=== PATIENT | male | born 1975 | race Caucasian/White ===

== ENCOUNTER 2021-02-28 22:14 | Emergency (ER) | payer OTHER ==
[~2021-02-28] VITALS: Ht 170.2 cm; Wt 108.9 kg
[2021-02-28] MEDS ORDERED: METF500 PO (22:31)
[2021-02-28] MEDS ORDERED: Prinivil10 MG PO (22:31)
== END 2021-02-28 22:40 | disposition home or self-care (01) ==
LOC: ER 22:14
DX: E11.9 Type 2 diabetes mellitus without complications (principal); Z76.0 Encounter for issue of repeat prescription; Z79.84 Long term (current) use of oral hypoglycemic drugs; Z79.899 Other long term (current) drug therapy
CPT/HCPCS: 99281

== ENCOUNTER 2021-03-04 03:30 | Emergency (ER) | payer OTHER ==
[~2021-03-04] VITALS: Ht 170.2 cm; Wt 108.9 kg
[~2021-03-04 03:30] MED LIST: METF500 PO; Prinivil10 MG PO
[2021-03-04] MEDS ORDERED: ALBU90OI INH (07:11)
[2021-03-04] MEDS ORDERED: Flovent Diskus50 MCG INH (07:11)
[2021-03-04] MEDS ORDERED: PRED20 PO (07:11)
[2021-03-04] MEDS ORDERED: NAPR500 PO (07:12)
[2021-03-04] MEDS ORDERED: LIDO700A20 TOP (07:12)
[2021-03-05] MEDS ORDERED: IBUP400 PO (07:11)
== END 2021-03-04 08:12 | disposition home or self-care (01) ==
LOC: ER 03:30
DX: S96.912A Strain of unspecified muscle and tendon at ankle and foot level, left foot, initial encounter (principal); J45.901 Unspecified asthma with (acute) exacerbation; Z79.899 Other long term (current) drug therapy; Z79.84 Long term (current) use of oral hypoglycemic drugs; E11.9 Type 2 diabetes mellitus without complications; I50.9 Heart failure, unspecified; F17.210 Nicotine dependence, cigarettes, uncomplicated; X58.XXXA Exposure to other specified factors, initial encounter
CPT/HCPCS: 71046; 93005; 93010; 93971; 94640; 99284-25; A9270; J7512

== ENCOUNTER 2021-03-05 02:00 | Emergency (ER) | payer OTHER ==
[~2021-03-05] VITALS: Ht 170.2 cm; Wt 108.9 kg
[~2021-03-05 02:00] MED LIST changes: +ALBU90OI INH; +Flovent Diskus50 MCG INH; +LIDO700A20 TOP; +NAPR500 PO; +PRED20 PO
[2021-03-05] MEDS ORDERED: IBUP400 PO (07:11)
== END 2021-03-05 07:20 | disposition home or self-care (01) ==
LOC: ER 02:00
DX: J45.909 Unspecified asthma, uncomplicated (principal); M25.572 Pain in left ankle and joints of left foot; E11.9 Type 2 diabetes mellitus without complications; F17.210 Nicotine dependence, cigarettes, uncomplicated
CPT/HCPCS: 94640; 99285-25; A9270

== ENCOUNTER 2021-06-26 01:24 | Emergency (ER) | payer OTHER ==
[~2021-06-26] VITALS: Ht 170.2 cm; Wt 104.3 kg
[~2021-06-26 01:24] MED LIST changes: +IBUP400 PO
== END 2021-06-26 04:48 | disposition home or self-care (01) ==
LOC: ER 01:24
DX: J45.901 Unspecified asthma with (acute) exacerbation (principal); E11.9 Type 2 diabetes mellitus without complications; F17.210 Nicotine dependence, cigarettes, uncomplicated; Z79.84 Long term (current) use of oral hypoglycemic drugs; Z79.899 Other long term (current) drug therapy
CPT/HCPCS: 93005; 93010; 94644; 94645; 94664; A9270; J1100